=== PATIENT | male | born 1995 | race Caucasian/White ===

== ENCOUNTER 2018-07-14 20:06 | Emergency (ER) | payer OTHER ==
[~2018-07-14] VITALS: Ht 165.1 cm; Wt 61.2 kg
[2018-07-14 20:06] VITALS: BP 125/87
[2018-07-14 21:00] VITALS: BP 115/75
== END 2018-07-14 20:55 | disposition home or self-care (01) ==
LOC: MED 20:06
DX: R06.00 Dyspnea, unspecified (principal); V49.60XA Unspecified car occupant injured in collision with unspecified motor vehicles in traffic accident, initial encounter; Y93.89 Activity, other specified; Y92.89 Other specified places as the place of occurrence of the external cause; Y99.8 Other external cause status
CPT/HCPCS: 71045; 99283; Q0092